=== PATIENT | female | born 1940 | race Caucasian/White ===

== ENCOUNTER 2025-03-07 23:00 | Emergency (ER) | payer OTHER, SELFPAY ==
[2025-03-07 23:49] VITALS: BP 180/78; PULSE 74; RESP 20; TEMP 36.6; O2SAT 97; BMI 22.6
[2025-03-08] VITALS (10 sets, daily range): BP systolic 175–217; BP diastolic 75–93; PULSE 76–79; RESP 11–29; O2SAT 94–98
--- NOTE | 2025-03-08 00:09 | EKG_ITS ---
[place] [id number] [place] [id number] Test Date: 2025-03-08 Pat Name: Nina Cary Department: [facility] Room: Gender: Female [employer]er: : 1940 Requested By: Order Number: [id number] Reading MD: Wilfredo Palomo MD Measurements Intervals [place] Rate: 78 P: 78 OR: 196 QRS: -38 QRSD: 98 T: 61 QT: 398 QTc: 453 Interpretive Statements Normal sinus rhythm Possible Left atrial enlargement Left axis deviation Incomplete right bundle branch block Septal infarct , age undetermined NO PRIOR TRACING Electronically Signed On 03-08-2025 7:43:34 PDT by Wilfredo Palomo MD
--- NOTE | 2025-03-08 00:10 | PC.NURSE ---
Pt reports balance problems at baseline and working with a therapist for it. Primary RN Celena made aware.
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
[2025-03-08 00:41] LABS: Add Manual Diff / Slide Review NO; Basophils Absolute Auto 0 /uL (0-100); Basophils Percent Auto 0.5 % (0-2); Eosinophils Absolute Auto 100 /uL (0-450); Eosinophils Percent Auto 1.1 % (2-4); Hematocrit 39.3 % (36-46); Hemoglobin 13.5 g/dL (12.0-16.0); Lymphocytes Absolute Auto 900 /uL (1100-4500); Lymphocytes Percent Auto 10.2 % (25-40); Mean Corpuscular HGB Conc 34.3 % (30-36); Mean Corpuscular Hemoglobin 32.5 PG (26-34); Mean Corpuscular Volume 94.7 fL (80-100); Monocytes Absolute Auto 700 /uL (0-900); Monocytes Percent Auto 7.5 % (3-14); Neutrophils Absolute Auto 7300 /uL (1500-7000); Neutrophils Percent Auto 80.7 % (50-75); Platelet Count 290 X10^3/uL (150-400); Red Blood Cell Count 4.15 X10^6/uL (4.0-5.2); Red Cell Distribution Width 12.9 % (11.6-14.8)
[2025-03-08 00:53] LABS: Prothrombin Time 11.7 SECONDS (9.4-12.5)
[2025-03-08 00:58] LABS: Alanine Aminotransferase 32 IU/L (<35); Albumin 4.7 g/dL (3.5-5.0); Albumin Globulin Ratio 1.6 (1.0-2.8); Alkaline Phosphatase 57 U/L (38-126); Aspartate Aminotransferase 41 IU/L (14-36); BUN Creatinine Ratio 20.2 (6-22); Bilirubin Total 0.4 mg/dL (0.2-1.3); Blood Urea Nitrogen 19 mg/dL (7-17); Calcium 9.5 mg/dL (8.4-10.2); Carbon Dioxide 27 mmol/L (22-32); Chloride 95 mmol/L (98-107); Estimated Glomerular Filt Rate > 60 mL/min (>60); Globulin 2.9 g/dL (1.7-4.1); Glucose 103 mg/dL (70-99); HEMOLYSIS < 15 (0-50); Potassium 3.9 mmol/L (3.4-5.1); Sodium 130 mmol/L (137-145); Total Protein 7.6 g/dL (6.3-8.2)
[2025-03-08] MEDS: MORPHINE 4 MG/ML INJ IV (00:58)
[2025-03-08] MEDS: ONDANSETRON 4 MG/2 ML INJ IV (00:58)
[2025-03-08] MEDS: SODIUM CHLORIDE 0.9% 1,000 ML 1000 ML IV (00:59)
[2025-03-08] MEDS: HYDROCODONE/ACET 5/325 PREPACK 1 BOTTLE MISC (02:48)
[2025-03-08] MEDS: ALBUTEROL HFA PREPACK 1 BOX MISC (02:48)
== END 2025-03-08 03:33 | disposition home or self-care (01) ==
PROVIDERS: Emergency Provider Emergency Medicine; PCP Family Medicine
DX: S20.212A Contusion of left front wall of thorax, initial encounter (principal); S30.1XXA Contusion of abdominal wall, initial encounter; R10.9 Unspecified abdominal pain; R07.9 Chest pain, unspecified; W18.30XA Fall on same level, unspecified, initial encounter; Y92.832 Beach as the place of occurrence of the external cause
CPT/HCPCS: 36415; 70450; 71260; 72125; 74177; 80053; 85025; 85610; 93005; 93010; 96361; 96374; 96375; 99284; J2270; J2405; Q9967